=== PATIENT | female | born 1950 | race Caucasian/White ===

== ENCOUNTER 2020-07-16 10:01 | Outpatient (CLI) | payer MEDICARE ==
[2020-07-16 12:20] LABS: #Eosinphils 0.2 10x3/uL (0.0-0.5); #Monocytes 0.4 10x3/uL (0.0-1.1); #Neutrophils 3.3 10x3/uL (1.5-8.4); %Basophils 0.6 % (0.0-2.0); %Eosinophils 4.9 % (0.0-6.0); %Lymphocytes 18.9 % (18.0-47.0); %Monocytes 8.1 % (0.0-10.0); %Neutrophils 67.1 % (40.0-75.0); Hemoglobin 11.6 g/dL (12.0-15.5); Mean Corpuscular HGB CONC 30.1 g/dL (32.0-36.0); Mean Corpuscular Hemoglobin 25.7 pg (27.0-33.0); Mean Corpuscular Volume 85.4 fl (81.6-98.3); Platelet Count 252 10x3/uL (150-450); RBC Distribution Width 16.6 % (11.5-14.5); Red Blood Cell (RBC) Count 4.52 10x6/uL (3.90-5.03); White Blood Cell (WBC) Count 4.9 10x3/uL (3.5-10.5)
[2020-07-16 12:37] LABS: INR-International Normal Ratio 1.2; PTT 26.5 sec (22.0-33.0)
[2020-07-16 12:44] LABS: Anion Gap 17 mmol/L (10-20); BUN (Urea Nitrogen) 52 mg/dL (9.8-20.1); Calc. Creatinine Clearance 0 mL/min (70-130); Carbon Dioxide 29 mmol/L (23-31); Chloride 105 mmol/L (98-107); Glucose 120 mg/dL (83-110); Potassium 3.7 mmol/L (3.5-5.1); Sodium 147 mmol/L (136-145)
[2020-07-16 19:17] LABS: SARS-CoV-2 PCR by NAA Not Detected (NotDetected)
== END 2020-07-16 10:02 | disposition home or self-care (01) ==
LOC: CSHLAB 10:01
PROVIDERS: ATTEND Specialist
DX: Z01.812 Encounter for preprocedural laboratory examination (principal); Z20.822 Contact with and (suspected) exposure to COVID-19
CPT/HCPCS: 80048; 85025; 85610; 85730; 87635; U0003; U0005

== ENCOUNTER → 2020-07-21 | Day surgery (SDC) | payer MEDICARE ==
[~2020-07-21] MED LIST: Acetylcysteine 800 MG/4 ML VIAL ONE; Adenosine 6 MG/2 ML VIAL ONE; Bivalirudin 250 MG VIAL ONE; Fentanyl 100 MCG/2 ML VIAL ONE; Heparin 10,000 UNITS/ 10 ML VIAL ONE; Lidocaine 1% (PF) 30 ML VIAL ONE; Midazolam HCl 2 mg/2 ml Vial ONE; Nitroglycerin 50 MG/250 ML BOT 0 ML ONE; Verapamil 5 MG/2 ML VIAL ONE
== END ==
LOC: CSHSDC 08:05
PROVIDERS: ATTEND Specialist
DX: I27.21 Secondary pulmonary arterial hypertension (principal); I25.10 Atherosclerotic heart disease of native coronary artery without angina pectoris; E66.01 Morbid (severe) obesity due to excess calories; I48.3 Typical atrial flutter; I10 Essential (primary) hypertension; Z79.899 Other long term (current) drug therapy; Z79.01 Long term (current) use of anticoagulants; Z90.49 Acquired absence of other specified parts of digestive tract; Z90.710 Acquired absence of both cervix and uterus; Z95.5 Presence of coronary angioplasty implant and graft; Z86.718 Personal history of other venous thrombosis and embolism; I08.2 Rheumatic disorders of both aortic and tricuspid valves; Z86.16 Personal history of COVID-19; G47.30 Sleep apnea, unspecified
CPT/HCPCS: 93005; 93451; C1760; 93010; 99152; 99153; J0153; J0583; J1644; J2001; J2250; J3010

== ENCOUNTER 2021-10-10 09:56 | Emergency (ER) | payer MEDICARE ==
[2021-10-10 11:20] LABS: #Basophils 0.1 10x3/uL (0.0-0.2); #Eosinphils 0.2 10x3/uL (0.0-0.5); #Monocytes 0.4 10x3/uL (0.0-1.1); #Neutrophils 2.9 10x3/uL (1.5-8.4); %Basophils 1.2 % (0.0-2.0); %Eosinophils 4.6 % (0.0-6.0); %Lymphocytes 17.9 % (18.0-47.0); %Monocytes 8.8 % (0.0-10.0); %Neutrophils 67.3 % (40.0-75.0); Hemoglobin 11.8 g/dL (12.0-15.5); Mean Corpuscular HGB CONC 31.4 g/dL (32.0-36.0); Mean Corpuscular Hemoglobin 28.4 pg (27.0-33.0); Mean Corpuscular Volume 90.4 fl (81.6-98.3); Mean Platelet Volume 11.1 fl (7.4-10.4); Platelet Count 264 10x3/uL (150-450); RBC Distribution Width 16.7 % (11.5-14.5); Red Blood Cell (RBC) Count 4.16 10x6/uL (3.90-5.03); White Blood Cell (WBC) Count 4.3 10x3/uL (3.5-10.5)
[2021-10-10 11:22] LABS: ALT (SGPT) 12 U/L (8-55); AST (SGOT) 22 U/L (5-34); Albumin 3.2 g/dL (3.4-4.8); Alkaline Phosphatase 92 U/L (40-110); Anion Gap 17 mmol/L (10-20); BUN (Urea Nitrogen) 36 mg/dL (9.8-20.1); Bilirubin, Total 1.5 mg/dL (0.2-1.2); CK (CPK) 57 U/L (29-168); Calc. Creatinine Clearance 0 mL/min (70-130); Calcium 8.9 mg/dL (7.8-10.44); Carbon Dioxide 21 mmol/L (23-31); Chloride 109 mmol/L (98-107); Estimated GFR 18; Globulin 2.9 g/dL (2.4-3.5); Glucose 116 mg/dL (83-110); Magnesium 1.9 mg/dL (1.6-2.6); Protein, Total 6.1 g/dL (5.8-8.1); Sodium 143 mmol/L (136-145)
[2021-10-10 11:43] LABS: CKMB 2.2 ng/mL (0-6.6)
[2021-10-10 12:47] LABS: Actual Bicarbonate (HCO3a) 24.1 mEq/L (22-28); Base Excess (BEa) -1.1 mEq/L (-2.0 to +3.0); CO2 Tension 42.1 mmHg (35.0-45.0); Calcium, Ionized (arterial) 1.22 mmol/L (1.12-1.30); Carboxyhemoglobin (COHb) 0.7 gm% (0.0-3.0); Hemoglobin (Hb) 12.7 g/dL (12.0-16.0); O2 Tension (PaO2), arterial 96.6 mmHg (> 70.0); Potassium - ABG Lab 3.5 mmol/L (3.70-5.30); Puncture Site RBA; pH, Arterial 7.38 (7.35-7.45)
[2021-10-10 12:51] LABS: ALV-art Gradient 50.415 mmHg (0-20)
== END 2021-10-10 14:17 | disposition home or self-care (01) ==
LOC: CSHERS 09:56
DX: R41.0 Disorientation, unspecified (principal); R00.0 Tachycardia, unspecified; E78.5 Hyperlipidemia, unspecified; E78.00 Pure hypercholesterolemia, unspecified; I10 Essential (primary) hypertension; I25.10 Atherosclerotic heart disease of native coronary artery without angina pectoris; E66.9 Obesity, unspecified; J45.909 Unspecified asthma, uncomplicated
CPT/HCPCS: 36415; 36600; 70450; 71045; 80053; 82550; 82553; 82805; 83605; 83735; 83880; 84443; 84484; 85025; 93005; 94760